=== PATIENT | female | born 1995 | race Two or more races ===

== ENCOUNTER 2017-09-24 03:32 | Emergency (ER) | payer MEDICAID ==
[~2017-09-24] VITALS: Ht 165.1 cm; Wt 113.6 kg
[~2017-09-24 03:32] MED LIST: PANT-47 PO
[2017-09-24 03:36] VITALS: BP 135/92
== END 2017-09-24 04:13 ==
LOC: ER 03:33
DX: F10.129 Alcohol abuse with intoxication, unspecified (principal); Z79.899 Other long term (current) drug therapy; V49.69XA Unspecified car occupant injured in collision with other motor vehicles in traffic accident, initial encounter; Y93.89 Activity, other specified; Y92.89 Other specified places as the place of occurrence of the external cause; Y99.8 Other external cause status; Y90.9 Presence of alcohol in blood, level not specified
CPT/HCPCS: 99284; A6213; A6449

== ENCOUNTER → 2023-05-25 | Emergency (ER) | payer MEDICAID ==
[~2023-05-25] VITALS: Ht 165.1 cm; Wt 115.2 kg
[~2023-05-25] MED LIST changes: +AMOX-117 PO
[2023-05-25 15:14] VITALS: BP 136/76; PULSE 71; TEMP 98.5; O2SAT 100
[2023-05-25 15:40] VITALS: RESP 17
--- NOTE | 2023-05-25 18:14 | NUR ---
I AGREE WITH THE ASSESSMENT PER Gera TRIPATHI LVN
== END | disposition home or self-care (01) ==
LOC: ER 15:09
DX: H66.93 Otitis media, unspecified, bilateral (principal); F41.9 Anxiety disorder, unspecified; Z72.89 Other problems related to lifestyle; Z79.899 Other long term (current) drug therapy
CPT/HCPCS: 99283

== ENCOUNTER 2023-06-29 22:37 | Emergency (ER) | payer MEDICAID ==
[~2023-06-29] VITALS: Ht 165.1 cm; Wt 109.1 kg
[~2023-06-29 22:37] MED LIST changes: -AMOX-117 PO
[2023-06-29 22:43] VITALS: BP 127/63; PULSE 97; RESP 18; TEMP 99; O2SAT 97
== END 2023-06-30 01:29 | disposition left against medical advice (07) ==
LOC: ER 22:37
DX: K92.0 Hematemesis (principal); R05.9 Cough, unspecified; R50.9 Fever, unspecified; Z53.21 Procedure and treatment not carried out due to patient leaving prior to being seen by health care provider
CPT/HCPCS: 99281

== ENCOUNTER 2024-03-03 11:59 | Emergency (ER) | payer MEDICAID ==
[~2024-03-03] VITALS: Ht 165.1 cm; Wt 96.2 kg
[2024-03-03 12:18] VITALS: TEMP 97.8
[2024-03-03 12:48] LABS: BASOPHILS % (AUTO) 0.4 % (0-1); EOSINOPHILS # (AUTO) 0.1 X10'3 (0-0.9); EOSINOPHILS % (AUTO) 1.1 % (0-6); HEMATOCRIT 41.3 % (35.0-45.0); HEMOGLOBIN 13.9 g/dl (12.0-16.0); LYMPHOCYTES # (AUTO) 2.4 X10'3 (1.1-4.8); LYMPHOCYTES % (AUTO) 32.6 % (21-51); MEAN CORPUSCULAR HEMOGLOBIN 29.9 PG (27.0-31.0); MEAN CORPUSCULAR HGB CONC 33.6 g/dL (33.0-36.5); MEAN CORPUSCULAR VOLUME 88.9 FL (78-98); MONOCYTES # (AUTO) 0.4 X10'3 (0-0.9); MONOCYTES % (AUTO) 4.8 % (2-12); NEUTROPHILS # (AUTO) 4.6 X10'3 (1.8-7.7); NEUTROPHILS % (AUTO) 61.1 % (42-75); PLATELET COUNT 280 X10'3 (140-440); RED BLOOD COUNT 4.64 X10'6 (4.20-5.60); RED CELL DISTRIBUTION WIDTH 13.4 % (11.5-14.5); WHITE BLOOD COUNT 7.5 X10'3 (4.5-11.0)
--- NOTE | 2024-03-03 13:00 | NUR ---
pt ambulated to the bathroom with no problems. urine collected and sent to lab.
[2024-03-03 13:03] LABS: ALANINE AMINOTRANSFERASE 18 U/L (12-78); ALBUMIN 3.5 G/DL (3.4-5.0); ALBUMIN/GLOBULIN RATIO 0.9 (1.1-1.5); ALKALINE PHOSPHATASE 59 IU/L (46-116); ANION GAP 6 (8-16); ASPARTATE AMINO TRANSFERASE 16 U/L (10-37); BILIRUBIN,TOTAL 0.7 MG/DL (0.1-1.0); BLOOD UREA NITROGEN 11 MG/DL (7-18); BUN/CREATININE RATIO 15.5 (10.0-20.0); CALCIUM 8.6 MG/DL (8.5-10.1); CHLORIDE 106 MMOL/L (99-107); CREATININE 0.71 MG/DL (0.40-0.90); GLUCOSE 73 MG/DL (70-104); LIPASE 24 U/L (16-77); POTASSIUM 3.8 MMOL/L (3.5-5.1); SODIUM 139 MMOL/L (135-145); TOTAL CARBON DIOXIDE 27.5 MMOL/L (24-32); TOTAL PROTEIN 7.5 G/DL (6.4-8.2); eCRCL 105 ML/MIN; eGFR > 90 ML/MIN
[2024-03-03 13:39] LABS: URINE HCG NEGATIVE (NEG)
[2024-03-03 13:49] LABS: BILIRUBIN,URINE SMALL (Neg); CLARITY,URINE CLOUDY (Clear); GLUCOSE, URINE NEGATIVE (Neg); KETONES,URINE TRACE mg/dl (Neg); LEUKOCYTE ESTERASE ,URINE MODERATE (Neg); NITRITES, URINE NEGATIVE (Neg); OCCULT BLOOD,URINE LARGE (Neg); PROTEIN,URINE 30 mg/dl (Neg)
[2024-03-03 13:50] LABS: COLOR,URINE DARK YELLOW (Yellow); UA COLLECTION TYPE VOIDED
--- NOTE | 2024-03-03 14:00 | NUR ---
pt resting in no apparent distress at this time, mother at bedside
[2024-03-03 14:08] LABS: BACTERIA,URINE 2+ /HPF (Neg); MUCUS STRANDS NONE SEEN /LPF (Neg); RBC,URINE TNTC /HPF (0-2); SQUAMOUS EPITHELIAL CELL,UR FEW /LPF (FEW); WBC CLUMPS,URINE FEW /HPF (NEGATIVE); WBC,URINE TNTC /HPF (0-4)
[2024-03-03] MEDS ORDERED: PHEN-716 PO (14:57)
[2024-03-03] MEDS ORDERED: CEPH-585 PO (14:57)
[2024-03-03] MEDS: phenazopyridine 100mg tablet PO ONE (15:10)
[2024-03-03] MEDS: CefTRIAXone 1000mg IM Kit (w/lidocaine diluent) IM ONE (15:13)
[2024-03-03 15:45] VITALS: BP 94/45; PULSE 54; RESP 16; O2SAT 100
== END 2024-03-03 15:45 | disposition home or self-care (01) ==
LOC: ER 11:59
DX: N39.0 Urinary tract infection, site not specified (principal); F41.9 Anxiety disorder, unspecified; Z79.899 Other long term (current) drug therapy
CPT/HCPCS: 36415; 80053; 81001; 81025; 83690; 85025; 87077; 87088; 87186; 96372; 99283; J0696

== ENCOUNTER 2024-09-28 15:31 | Emergency (ER) | payer MEDICAID ==
[~2024-09-28] VITALS: Ht 165.1 cm; Wt 85.3 kg
[~2024-09-28 15:31] MED LIST changes: +PHEN-716 PO
[2024-09-28] MEDS: acetaminophen 325mg tablet PO ONE (16:21)
[2024-09-28] MEDS: ondansetron 4mg rapidly disintigrating tab PO ONE (16:21)
[2024-09-28] MEDS ORDERED: ONDA-243 PO (16:35)
[2024-09-28 17:35] VITALS: BP 99/58; PULSE 65; RESP 16; TEMP 98.5; O2SAT 100
== END 2024-09-28 17:38 | disposition home or self-care (01) ==
LOC: ER 15:31
DX: S06.0X1A Concussion with loss of consciousness of 30 minutes or less, initial encounter (principal); F41.9 Anxiety disorder, unspecified; Z72.89 Other problems related to lifestyle; Z79.899 Other long term (current) drug therapy; W01.0XXA Fall on same level from slipping, tripping and stumbling without subsequent striking against object, initial encounter; Y93.89 Activity, other specified; Y92.89 Other specified places as the place of occurrence of the external cause; Y99.8 Other external cause status
CPT/HCPCS: 99284

== ENCOUNTER 2025-02-04 19:39 | Emergency (ER) | payer MEDICAID ==
[~2025-02-04] VITALS: Ht 165.1 cm; Wt 85.7 kg
[~2025-02-04 19:39] MED LIST changes: +ONDA-243 PO
[2025-02-04 19:44] VITALS: BP 114/52; PULSE 65; RESP 16; O2SAT 100
--- NOTE | 2025-02-04 20:13 | RADIOLOGY REPORT ---
CLINICAL INDICATION: TOE PAIN, Right big toe. TECHNIQUE: 3 radiographic views of the right toes were obtained. Comparison: None FINDINGS/IMPRESSION: There is no evidence of acute fracture or dislocation. The visualized joint space is well maintained. The alignment is anatomical. There is no radiopaque foreign body.
--- NOTE | 2025-02-04 20:59 | Physician Documentation ---
History of Present Illness ~ Chief Complaint: Toe pain Stated Complaint: TOE PAIN Time Seen by MD: 20:21 Primary Medical Doctor: [facility] Source: patient Mode of Arrival: POV Exam Limitations: no limitations HPI 29-year-old female was running through her living room stopped her right great toe on the leg of the couch with pain swelling and bleeding including blood under her toenail. Concerned for fracture Tetanus witin 5 years: Yes Medication Reconciliation Allergies: Coded Allergies: No Known Allergies (Unverified , 02/04/25) Scheduled Pantoprazole Sodium (PROTONIX tablet), 40 MG PO DAILY Phenazopyridine HCl (Pyridium), 1 TAB PO Q8H Scheduled PRN ONDANSETRON ODT 4mg tablet (Ondansetron Odt), 1 TAB PO Q6H PRN PRN for nausea/vomiting Past Medical History Past Medical History: No Pertinent History, Anxiety Past Surgical History: noncontributory Alcohol Use: Occasionally Drug Use: none Lives In: Home Review of Systems All Other Systems at this time: Reviewed and Negative Integumentary: Reports: see HPI Physical Exam Vital Signs: Temperature: 97.3, Heart Rate: 65, Respiratory Rate: 16, BP: 114/52, Pulse Oximetry: 100, Weight: 85.700 Oxygen Flow Rate: 0 Physical Exam General: Alert, no apparent distress. Respiratory: Lungs clear, no respiratory distress. Chest: No accessory muscle use. Cardiovascular: Regular rate and rhythm, no murmurs. Gastrointestinal: Soft, nontender, nondistended. Bowels sounds present. Extremities: Swelling dried blood and blood under nail bed to right great toe. No obvious deformity sensation circulation intact Neurologic: Oriented x4. Psychiatric: Normal mood and affect. Skin: Normal color, warm and dry. No edema, no ecchymosis. Procedures Nail Trephination Location: Right great toe Method of Drainage: nail cauterized Sterile Dressing Applied?: No Finger Splint?: No Tolerated Procedure Well?: yes, no complications Progress Results/Orders Results/Orders Vital Signs 02/04/25 02/04/25 19:44 21:12 Temp 97.3 97.3 Pulse 65 Resp 16 B/P (MAP) 114/52 Pulse Ox 100 O2 Flow Rate 0 EKG/XRAY/CT/US/VASC/MRI Bone/Soft Tissue X-Ray (Ext.) : Additional Comment CLINICAL INDICATION: TOE PAIN, Right big toe. TECHNIQUE: 3 radiographic views of the right toes were obtained. Comparison: None FINDINGS/IMPRESSION: There is no evidence of acute fracture or dislocation. The visualized joint space is well maintained. The alignment is anatomical. There is no radiopaque foreign body. Medical Decision Making Findings X-ray to evaluate for fracture versus soft tissue injury and subungual hematoma, subungual hematoma successfully trephinated Departure Time of Disposition: 20:57 Disposition: 01 HOME / SELF CARE / HOMELESS Impression: Primary Impression: Pain of toe Additional Impression: Subungual hematoma Condition: Stable Additional Instructions: Wear comfortable shoes no fracture noted in x-ray clean with warm water and soap keep clean and dry monitor for any new or worsening symptoms Referrals: NO PRIMARY CARE PROVIDER (PCP) Education Educated: Patient Educated regarding: diagnosis, treatment, need for follow up Signature Scribe Signature: No scribe Attestation: The note accurately reflects work and decisions made by me.Yuan Washington - DAYANA 02/04/25 20:59 YUAN WASHINGTON NP Feb 04, 2025 20:59
[2025-02-04 21:12] VITALS: TEMP 97.3
== END 2025-02-04 21:15 | disposition home or self-care (01) ==
LOC: ER 19:39
DX: S90.211A Contusion of right great toe with damage to nail, initial encounter (principal); X58.XXXA Exposure to other specified factors, initial encounter; Y93.89 Activity, other specified; Y92.89 Other specified places as the place of occurrence of the external cause; Y99.8 Other external cause status
CPT/HCPCS: 73660; 99283; A6449

== ENCOUNTER 2025-03-31 13:10 | Emergency (ER) | payer MEDICAID | END 2025-03-31 14:11 | disposition left against medical advice (07) | LOC: ER 13:11 | DX: N93.9 Abnormal uterine and vaginal bleeding, unspecified (principal); Z53.21 Procedure and treatment not carried out due to patient leaving prior to being seen by health care provider ==